=== PATIENT | female | born 1995 | race Caucasian/White ===

== ENCOUNTER 2019-03-02 22:38 | Emergency (ER) | payer SELFPAY ==
[~2019-03-02] VITALS: Ht 157.5 cm; Wt 61.2 kg
[2019-03-02] MEDS ORDERED: ALBUTEROL2.5 MG/3 M INH (22:45)
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
[2019-03-02 22:53] VITALS: BP 116/70
--- NOTE | 2019-03-02 23:12 | NUR ---
ED Nurse Note: PT WENT DOWN FOR X RAY.
[2019-03-02] MEDS ORDERED: IBUPROFEN600 MG ORAL (23:13)
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
--- NOTE | 2019-03-02 23:18 | NUR ---
ED Nurse Note: PT RETURBED BACK FROM X RAY
[2019-03-02 23:36] VITALS: BP 117/70
--- NOTE | 2019-03-02 23:36 | NUR ---
ER DISCHARGE NOTE: Patient is cleared to be discharged per ERMD, pt is aox4, on room air, with stable vital signs. pt was given dc and prescription instructions, pt was able to verbalize understanding, pt id band removed without complications. pt is able to ambulate with steady gait. pt took all belongings.
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
== END 2019-03-02 23:36 | disposition home or self-care (01) ==
LOC: EMR 22:55
DX: S16.1XXA Strain of muscle, fascia and tendon at neck level, initial encounter (principal); V43.62XA Car passenger injured in collision with other type car in traffic accident, initial encounter; Y92.410 Unspecified street and highway as the place of occurrence of the external cause; R07.9 Chest pain, unspecified
CPT/HCPCS: 72040; 99283